=== PATIENT | female | born 1980 | race Caucasian/White ===

== ENCOUNTER 2016-12-26 21:21 | Emergency (ER) | payer OTHER ==
[~2016-12-26] VITALS: Ht 165.1 cm; Wt 98.3 kg
[2016-12-26] MEDS ORDERED: AUGMENTIN875 MG PO (22:51)
[2016-12-26 23:06] VITALS: BP 145/90
== END 2016-12-26 23:08 | disposition home or self-care (01) ==
LOC: EME 21:21
DX: J32.9 Chronic sinusitis, unspecified (principal)
CPT/HCPCS: 70450; 99281; 99284